=== PATIENT | female | born 1985 | race African-American/Black ===

== ENCOUNTER 2019-07-14 20:21 | Emergency (ER) | payer OTHER ==
[2019-07-14 20:27] VITALS: BP 134/83; PULSE 78; TEMP 97.5; BMI 17.4
[2019-07-14] MEDS: ALBUTEROL SO4 2.5/IPRATROPIUM 0.5 INH SOL 3 ML VIAL.NEB. NEB SCH ×4 (21:40→22:14)
[2019-07-14] MEDS ORDERED: ALBUTEROL SO4 2.5/IPRATROPIUM 0.5 INH SOL 3 ML VIAL.NEB. NEB ONE (22:11)
--- NOTE | 2019-07-14 22:22 | PDOC ---
History of Present Illness - General Chief Complaint: Pain Stated Complaint: R FOOT PAIN Time Seen by Provider: 07/14/19 21:39 History Source: Patient Exam Limitations: No Limitations - History of Present Illness Initial Comments: 07/14/19 22:20 HISTORY OF PRESENT ILLNESS: 34-year-old woman past medical history of asthma presents emergency department for evaluation of growths to the sole of her right foot as well as increased asthma pump usage over the past 2 weeks. Patient has been using her asthma pump 6-7 times a day to help relieve her wheezing. Patient reports her friends and family have heard her wheezing audibly while asleep. She denies any fevers, chills, shortness of breath, chest pain or tightness. No recent travel or sick contacts. PAST MEDICAL HISTORY: Asthma SURGICAL HISTORY: Denies ALLERGIES: No known drug allergies REVIEW OF SYSTEMS General/Constitutional: Denies fever or chills. Denies weakness, weight change. HEENT: Denies change in vision. Denies ear pain or discharge. Denies sore throat. Cardiovascular: Denies chest pain or shortness of breath. Respiratory: See HPI Gastrointestinal: Denies nausea, vomiting, diarrhea or constipation. Denies rectal bleeding. Genitourinary: Denies dysuria, frequency, or change in urination. Musculoskeletal: Denies joint or muscle swelling or pain. Denies neck or back pain. Skin and breasts: See HPI Neurologic: Denies headache, vertigo, loss of consciousness, or loss of sensation. Psychiatric: Denies depression or anxiety. Endocrine: Denies increased thirst. Denies abnormal weight change. Hematologic/Lymphatic: Denies anemia, easy bleeding, or history of blood clots. Allergic/Immunologic: Denies hives or skin allergy. Denies latex allergy. PHYSICAL EXAM General Appearance: Well-appearing, appropriately dressed. No apparent distress , no intoxication. HEENT: EOMI, PERRLA, normal ENT inspection, normal voice, TMs normal, pharynx normal. No conjunctival pallor. No photophobia, scleral icterus. Neck: Supple. Trachea midline. No tenderness, rigidity, carotid bruit, stridor , lymphadenopathy, or thyromegaly. Respiratory/Chest: Lungs CTAB. No shortness of breath, chest tenderness, respiratory distress, accessory muscle use. No crackles, rales, rhonchi, stridor , dullness. End expiratory wheezing present. Cardiovascular: RRR. S1, S2. No JVD, murmur, bradycardia, tachycardia. Musculoskeletal/Extremities: Normal inspection. FROM of all extremities, normal capillary refill. Pelvis Stable. No CVA tenderness. No tenderness to extremities, pedal edema, swelling, erythema or deformity. 4 plantars warts present to the plantar surface of the right foot. No evidence of superinfection present. Past History - Past Medical History Allergies/Adverse Reactions: Allergies Allergy/AdvReac Type Severity Reaction Status Date / Time No Known Allergies Allergy Verified 07/14/19 20:27 Asthma: Yes Cardiac Disorders: Yes ([place]) COPD: No - Psycho Social/Smoking Cessation Hx Smoking History: Never smoked *Physical Exam - Vital Signs Last Vital Signs Temp Pulse Resp BP Pulse Ox 97.5 F L 78 18 134/83 100 07/14/19 20:24 07/14/19 20:24 07/14/19 20:24 07/14/19 20:24 07/14/19 20:24 Medical Decision Making - Medical Decision Making 07/14/19 22:19 A/P: 34-year-old woman with asthma exacerbation and plantars warts to her right foot Lungs with end expiratory wheezes Plantars wart x4 present to plantar surface of the right foot As patient has been using increased asthma pump at home I will give DuoNeb's x4 here and reevaluate. 07/14/19 22:55 Repeat lung exam reveals clear lungs. Patient is requesting discharge. Discharge home with referral for podiatry and primary care. Discharge - Discharge Information Problems reviewed: Yes Clinical Impression/Diagnosis: Plantar wart of right foot, Asthma exacerbation, mild Condition: Fair Disposition: HOME - Admission No - Follow up/Referral Referrals: Arnaldo Victor DPM [Staff Physician] - [facility] [place] [facility] [place] [Provider Group] - Patient Discharge Instructions Additional Instructions: Follow-up with Dr. Victor who is a test case developer for continued evaluation of plantars warts. You have been given a referral for the [facility] internal medicine group. Schedule an appointment for continued evaluation of your asthma and to set up a primary care physician in the area. Return to the emergency department for any new or worsening symptoms. Thank you very much for choosing us to provide your emergent healthcare needs. - Post Discharge Activity
== END 2019-07-14 22:58 | disposition home or self-care (01) ==
LOC: JERFT 20:21
PROC: 3E0F7GC Introduction of Other Therapeutic Substance into Respiratory Tract, Via Natural or Artificial Opening (ICD-10-PCS; principal; 2019-07-14)
DX: J45.21 Mild intermittent asthma with (acute) exacerbation (principal); B07.0 Plantar wart; I25.10 Atherosclerotic heart disease of native coronary artery without angina pectoris; I10 Essential (primary) hypertension
CPT/HCPCS: 99285-25